=== PATIENT | female | born 1965 | race Two or more races ===

== ENCOUNTER 2024-01-30 09:37 | Inpatient (IN) | payer MEDICAID, OTHER ==
[~2024-01-30] VITALS: Ht 157.5 cm; Wt 59.0 kg
[2024-01-30 10:23] LABS: Urine Bacteria None Seen /hpf (None Seen)
[2024-01-30] MEDS: ONDANSETRON HCL 4 MG/2 ML VIAL IV ONE ×2 (10:33→13:00)
[2024-01-30] MEDS: HYDROcodone-ACET 5/325MG TAB PO ONE (10:35)
[2024-01-30 10:50] LABS: Urine Blood 2+ /uL (Negative); Urine Clarity Turbid (Clear); Urine Color Yellow (Yellow); Urine Hyaline Cast FEW /lpf (0 - 2); Urine Mucus FEW (None Seen); Urine Protein, UAD TRACE (Negative); Urine Specific Gravity 1.022 (1.001-1.035); Urine Urobilinogen Normal (Negative); Urine WBC 12 /hpf (0 - 5); Urine pH 5.5 (5.0-9.0)
[2024-01-30 10:53] LABS: Basophils # (auto) 0 10 ^3/uL (0-0.2); Basophils % (auto) 0.4 % (0.0-2.0); Eosinophils # (auto) 0.1 10 ^3/uL (0-0.8); Eosinophils % (auto) 1.8 % (0.0-7.0); Hematocrit 35.9 % (36.0-46.0); Hemoglobin 12.1 g/dL (12.2-16.2); Lymphocytes # (auto) 1.9 10 ^3/uL (0.4-5.4); Lymphocytes % (auto) 28.6 % (10.0-50.0); Mean Corpuscular Hemoglobin 30.7 pg (28.0-32.0); Mean Corpuscular Hgb Conc. 33.6 g/dL (32.0-36.0); Mean Corpuscular Volume 91.4 fL (80.0-100.0); Monocytes # (auto) 0.4 10 ^3/uL (0-1.3); Monocytes % (auto) 5.4 % (0.0-12.0); Neutrophils # (auto) 4.2 10 ^3/uL (1.6-8.6); Neutrophils % (auto) 63.8 % (37.0-80.0); Platelet Count (auto) 326 10^3/uL (140-450); Red Blood Cells 3.93 10^6/uL (4.0-5.20); Red Cell Distribution Width 12.4 % (11.8-14.3); White Blood Cell 6.6 10^3/uL (4.4-10.8)
[2024-01-30 11:03] LABS: Albumin 3.8 g/dL (3.2-4.8); Alkaline Phosphatase 48 U/L (46-116); Anion Gap 7 (5-15); Aspartate Aminotransferase 9 U/L (13-40); BUN/Creatinine Ratio 16.1 (10.0-20.0); Bilirubin, Total 0.4 mg/dL (0.2-1.0); Blood Urea Nitrogen 10 mg/dL (9-23); Calcium 7.8 mg/dL (8.7-10.4); Carbon Dioxide 22 mmol/L (20-30); Chloride 114 mmol/L (98-107); Glucose 87 mg/dL (74-106); Potassium 3.1 mmol/L (3.5-5.1); Sodium 143 mmol/L (136-145)
[2024-01-30 11:04] LABS: Alanine Aminotransferase < 9 U/L (7-40); Total Protein 6.5 g/dL (5.7-8.2)
[2024-01-30] MEDS: POTASSIUM EFFERVESENT TAB 25 MEQ PO ONE (12:44)
[2024-01-30] MEDS: SODIUM CHLORIDE 0.9% 1,000 ML IV ONE ×2 (13:00→14:18)
[2024-01-30] MEDS: MORPHINE SULFATE INJ 2 MG/ml SYRG IV ONE (13:00)
[2024-01-30] MEDS: cefTRIAXone 1GM/50ML D5W 50 ML IV ONE (14:11)
[2024-01-30] MEDS: metroNIDAZOLE 500MG/100ML 100 ML IV ONE (14:54)
[2024-01-30] MEDS ORDERED: MORPHINE SULFATE INJ 2 MG/ml SYRG IV PRN ×2 (15:15)
[2024-01-30] MEDS ORDERED: HYDROcodone-ACET 5/325MG TAB PO PRN (15:15)
[2024-01-30] MEDS ORDERED: NITROGLYCERIN 0.4 MG SL TAB SL PRN (15:15)
[2024-01-30] MEDS ORDERED: ONDANSETRON HCL 4 MG/2 ML VIAL IV PRN (15:15)
[2024-01-30 15:20] VITALS: PULSE 55; RESP 14; O2SAT 99
[2024-01-30] MEDS: SOD CHL 0.9%/ KCL 20MEQ 1,000 ML IV SCH (16:45)
[2024-01-30 19:30] VITALS: PULSE 59; RESP 16; O2SAT 98
[2024-01-30] MEDS: metroNIDAZOLE 500MG/100ML 100 ML IV SCH (22:00)
[2024-01-31] VITALS (8 sets, daily range): BP systolic 115–156; BP diastolic 66–76; PULSE 45–62; RESP 16–18; TEMP 97.6–98.5; O2SAT 95–100
[2024-01-31] MEDS ORDERED: LOSA-534 PO (03:33)
[2024-01-31] MEDS: levoFLOXacin 500MG 100 ML IV SCH (08:59)
[2024-01-31] MEDS: PANTOPRAZOLE 40 MG/10 ML VIAL INJ IV SCH (08:59)
[2024-01-31] MEDS: IBUPROFEN 600 MG TAB PO PRN (11:36)
[2024-02-01] VITALS (8 sets, daily range): BP systolic 115–150; BP diastolic 59–72; PULSE 51–73; RESP 15–20; TEMP 97.1–98.2; O2SAT 96–99
[2024-02-01 06:37] LABS: Chloride 112 mmol/L (98-107); Potassium 3.9 mmol/L (3.5-5.1); Sodium 142 mmol/L (136-145)
[2024-02-01 06:38] LABS: Anion Gap 6 (5-15); Calcium 8.8 mg/dL (8.7-10.4); Carbon Dioxide 24 mmol/L (20-30)
[2024-02-01 06:43] LABS: Glucose 94 mg/dL (74-106)
[2024-02-01 06:44] LABS: BUN/Creatinine Ratio 6.8 (10.0-20.0); Blood Urea Nitrogen 5 mg/dL (9-23)
[2024-02-02] VITALS (9 sets, daily range): BP systolic 135–158; BP diastolic 64–75; PULSE 53–88; RESP 16–18; TEMP 97.6–98.8; O2SAT 93–99
[2024-02-03] VITALS (7 sets, daily range): BP systolic 134–163; BP diastolic 59–76; PULSE 48–70; RESP 16–18; TEMP 36.3; O2SAT 97–100
[2024-02-03] MEDS: LOSARTAN POTASSIUM 50 MG TAB PO SCH (09:45)
[2024-02-03] MEDS ORDERED: METR-344 PO (13:44)
[2024-02-03] MEDS ORDERED: LEVO500T91 PO (13:44)
[2024-02-03] MEDS ORDERED: HYDR-4902 PO (13:44)
== END 2024-02-03 16:15 | disposition home or self-care (01) | DRG 244 ==
LOC: ER 09:37 → TELE 15:16 → TELE-CENTR 01-31 02:19
PROVIDERS: ADMIT Nurse Practitioner Acute Care; ATTEND Internal Medicine
DX: K57.32 Diverticulitis of large intestine without perforation or abscess without bleeding (principal); E83.51 Hypocalcemia; I95.9 Hypotension, unspecified; E66.9 Obesity, unspecified; E87.6 Hypokalemia; I10 Essential (primary) hypertension; Z90.710 Acquired absence of both cervix and uterus; Z68.23 Body mass index [BMI] 23.0-23.9, adult; Z79.899 Other long term (current) drug therapy
CPT/HCPCS: 36415; 74176; 80048; 80053; 81001; 82962; 83605; 85025; 87040; G0378; J1956; J2405; J2470; J3490

== ENCOUNTER 2024-03-07 13:07 | Emergency (ER) | payer MEDICAID ==
[~2024-03-07] VITALS: Ht 160 cm; Wt 55.4 kg
[~2024-03-07 13:07] MED LIST: HYDR-4902 PO; LEVO500T91 PO; LOSA-534 PO; METR-344 PO
[2024-03-07 13:42] LABS: Basophils # (auto) 0 10 ^3/uL (0-0.2); Basophils % (auto) 0.4 % (0.0-2.0); Eosinophils # (auto) 0.1 10 ^3/uL (0-0.8); Eosinophils % (auto) 2.4 % (0.0-7.0); Hematocrit 42.6 % (36.0-46.0); Hemoglobin 14.4 g/dL (12.2-16.2); Mean Corpuscular Hemoglobin 30.5 pg (28.0-32.0); Mean Corpuscular Hgb Conc. 33.7 g/dL (32.0-36.0); Mean Corpuscular Volume 90.4 fL (80.0-100.0); Monocytes # (auto) 0.4 10 ^3/uL (0-1.3); Monocytes % (auto) 6.8 % (0.0-12.0); Neutrophils # (auto) 3.2 10 ^3/uL (1.6-8.6); Neutrophils % (auto) 55.4 % (37.0-80.0); Nucleated Red Blood Cells % 0.1 %; Platelet Count (auto) 341 10^3/uL (140-450); Red Blood Cells 4.72 10^6/uL (4.0-5.20); Red Cell Distribution Width 12.8 % (11.8-14.3); White Blood Cell 5.8 10^3/uL (4.4-10.8)
[2024-03-07 13:54] LABS: Urine Bacteria None Seen /hpf (None Seen)
[2024-03-07 14:05] LABS: Alanine Aminotransferase 12 U/L (7-40); Albumin 4.6 g/dL (3.2-4.8); Alkaline Phosphatase 50 U/L (46-116); Anion Gap 4 (5-15); Aspartate Aminotransferase 10 U/L (13-40); BUN/Creatinine Ratio 13.2 (10.0-20.0); Bilirubin, Total 0.6 mg/dL (0.2-1.0); Blood Urea Nitrogen 10 mg/dL (9-23); Calcium 9.6 mg/dL (8.7-10.4); Carbon Dioxide 28 mmol/L (20-31); Chloride 107 mmol/L (98-107); Glucose 107 mg/dL (74-106); Lipase 34 U/L (12-53); Potassium 3.6 mmol/L (3.5-5.1); Sodium 139 mmol/L (136-145); Total Protein 7.9 g/dL (5.7-8.2)
[2024-03-07 14:12] LABS: Urine Blood 1+ /uL (Negative); Urine Clarity Clear (Clear); Urine Color Yellow (Yellow); Urine Protein, UAD Negative (Negative); Urine Specific Gravity 1.004 (1.001-1.035); Urine Urobilinogen Normal (Negative); Urine WBC <1 /hpf (0 - 5)
[2024-03-07] MEDS: ACETAMINOPHEN 325 MG TAB PO ONE (16:25)
== END 2024-03-07 15:57 | disposition left against medical advice (07) ==
LOC: ER 13:07
DX: K80.70 Calculus of gallbladder and bile duct without cholecystitis without obstruction (principal); R10.31 Right lower quadrant pain; R10.32 Left lower quadrant pain; I10 Essential (primary) hypertension; Z90.710 Acquired absence of both cervix and uterus; Z79.899 Other long term (current) drug therapy
CPT/HCPCS: 36415; 74176; 80053; 81001; 83690; 85025